=== PATIENT | male | born 1955 | race Caucasian/White ===

== ENCOUNTER 2023-05-25 07:30 | Emergency (ER) | payer MEDICARE, SELFPAY ==
--- NOTE | ~2023-05-25 | XR_ITS ---
XR lumbar spine 2-3V DATE: 05/25/2023 09:44 INDICATION: Back pain TECHNIQUE: AP, lateral, coned lateral lumbosacral views COMPARISON: None FINDINGS: Mild levoscoliosis Diffuse idiopathic skeletal hyperostosis of the thoracolumbar spine. Moderately severe degenerative disc disease at L5-S1 and moderate degenerative disease at the remaini ng lumbar interspaces. No fracture or bone destruction or spondylolisthesis. The lumbar pedicles are intact. The sacroiliac joints appear normal. IMPRESSION: Multilevel degenerative disc disease, moderately severe L5-S1, moderate at the remaining levels Reviewed, dictated and finalized at location B. IMPRESSION: Multilevel degenerative disc disease, moderately severe L5-S1, mode rate at the remaining levels
[2023-05-25 07:34] VITALS: BP 89/76; PULSE 96; RESP 16; TEMP 36.4; O2SAT 98
[2023-05-25 07:57] VITALS: BP 112/65; PULSE 95; RESP 18; O2SAT 100
[2023-05-25] MEDS: KETOROLAC 30 MG/ML VIAL (*BKC) IV PUSH (09:10)
[2023-05-25] MEDS: diazePAM INJ (*CRX) 10 MG/2 ML SYRINGE 3 MG IV PUSH (09:11)
--- NOTE | 2023-05-25 10:58 | ED.BACK ---
HPI - Back Pain/Injury General Chief Complaint: Back Pain/Injury Stated Complaint: Back pain Time Seen by Provider: 05/25/23 07:42 History of Present Illness HPI Narrative: Patient is a 67-year-old male who presents ER with right-sided back pain. Ongoing over the last 5 days. Proceeded by doing increased amount of work outside including lawn care. No fevers or chills or sweats. No known physical trauma no pop. Pain is sharp and radiates down his leg. No saddle anesthesia or difficulty with urination/defecation. Related Data Allergies Allergy/AdvReac Type Severity Reaction Status Date / Time bacitracin Allergy Hives Verified 05/25/23 07:56 [From Neosporin ([id number])] neomycin Allergy Hives Verified 05/25/23 07:56 [From Neosporin ([id number])] polymyxin B Allergy Hives Verified 05/25/23 07:56 [From Neosporin ([id number])] Review of Systems Review of Systems: All systems reviewed & are unremarkable except as noted in HPI and below Constitutional: Constitutional: Denies chills and Denies fever(s) Cardiovascular: Cardiovascular: Denies chest pain, Denies rapid heart rate and Denies radiating jaw, neck or arm pain Gastrointestinal: Gastrointestinal: Denies abdominal pain, Denies nausea and Denies vomiting Musculoskeletal: Musculoskeletal: Reports back pain, Denies arthralgias and Denies joint swelling Neurologic: Denies focal weakness and Denies numbness PMFSH Past Medical History Medical History (Updated 05/25/23 @ 11:03 by Kirt Kendrick MD) Healthy adult male Surgical History Surgical History (Updated 05/25/23 @ 11:03 by Kirt Kendrick MD) No pertinent past surgical history Exam Narrative: GENERAL: Well-appearing, well-nourished, and in no acute distress. HEAD: Normocephalic, atraumatic. CHEST: Clear to auscultation. No respiratory distress. HEART: Regular rate and rhythm. Normal peripheral pulses. ABDOMEN: Soft, nontender, nondistended. Back: No reproducible midline tenderness of the T/L-spine. Mild tenderness to the right paraspinal musculature at the level of L3-L4. Spasm noted. No paraspinal muscle tenderness on the left side. EXTREMITIES: Normal range of motion. No edema. SKIN: Warm, dry, no rash. NEURO: Alert and oriented x3. PSYCH: Normal mood and affect. Course Course Emergency Course: Patient with moderate improvement in pain with Toradol and Valium. Discussed imaging results and treatment of sciatica. Patient verbalized understanding. Discharge home. Vital Signs Vital signs: Vital Signs Temperature 97.6 F 05/25/23 07:34 Pulse Rate 96 05/25/23 07:34 Respiratory Rate 16 05/25/23 07:34 Blood Pressure 89/76 L 05/25/23 07:34 Pulse Oximetry 98 05/25/23 07:34 Oxygen Delivery Room Air 05/25/23 07:34 Temperature 97.6 F 05/25/23 07:34 Pulse Rate 95 05/25/23 07:57 Respiratory Rate 18 05/25/23 07:57 Blood Pressure 112/65 05/25/23 07:57 Pulse Oximetry 100 05/25/23 07:57 Oxygen Delivery Room Air 05/25/23 07:34 MDM - Back Pain/Injury Imaging Data Radiologist's impression: ITS Impressions Lumbar Spine X-Ray 05/25/23 09:57 IMPRESSION: Multilevel degenerative disc disease, moderately severe L5-S1, moderate at the remaining levels Discharge Plan Discharge Clinical Impression: Sciatica Patient Disposition: Home, Self-Care Condition: Stable Instructions: Sciatica (ED) Additional Instructions: Return to the ER if you have increased pain in your back, you develop lower extremity weakness/numbness/paralysis, you have numbness or tingling in your private parts, or you are unable to control your ability to urinate/stool. Prescriptions: New methylprednisolone [Medrol (Richar)] 4 mg tablets,dose pack See Rx Instructions .ROUTE .COMPLEX Qty: 21 0RF Rx Instructions: orally per package directions cyclobenzaprine 10 mg tablet 10 mg PO TID PRN (R
[2023-05-25 11:10] VITALS: BP 137/79; PULSE 89; RESP 20; O2SAT 98
== END 2023-05-25 11:10 | disposition home or self-care (01) ==
PROVIDERS: Emergency Provider Emergency Medicine
DX: M54.41 Lumbago with sciatica, right side (principal)
CPT/HCPCS: 72100; 96374; 96375; 99284; J1885; J3360

== ENCOUNTER 2023-06-01 13:39 | Inpatient (IN) | payer MEDICARE, SELFPAY ==
[2023-06-01] VITALS (9 sets, daily range): BP systolic 105–136; BP diastolic 62–92; PULSE 91–108; RESP 16–18; TEMP 36.2–36.6; O2SAT 92–98; BMI 27.6
--- NOTE | ~2023-06-01 | XR_ITS ---
Right foot Technique: AP and lateral views were obtained. Clinical History: Osteomyelitis of second toe Findings: No acute fracture or dislocation is seen. There is focal erosive change of the distal aspec t of the second distal phalanx, suspicious for osteomyelitis. There is soft tissue swelling of the di stal aspect of the second toe with possible focal soft tissue ulcer. Remaining osseous structures and joint spaces are intact. Impression: Findings consistent with osteomyelitis of the distal aspect of the second distal phalanx with overlyi ng soft tissue swelling and possible ulcer. Reviewed, dictated and finalized at location . Impression: Findings consistent with osteomyelitis of the distal aspect of the second dista l phalanx with overlying soft tissue swelling and possible ulcer.
--- NOTE | ~2023-06-01 | US_ITS ---
EXAMINATION:US venous doppler LE LT INDICATION:Left leg pain TECHNIQUE: Multiple grayscale, color flow and Doppler images of the left lower extremity deep venous systems were obtained and reviewed. COMPARISON:No prior studies for comparison. FINDINGS: The common femoral, superficial femoral and popliteal veins demonstrate normal respiratory variation, augmentation and compressibility. Color flow is also seen within the posterior tibial, pe roneal, and profunda veins. The greater saphenous vein is not visualized. IMPRESSION: 1: No lower extremity deep venous thrombosis. Reviewed, dictated and finalized at location A.
--- NOTE | ~2023-06-01 | XR_ITS ---
XR knee LT min 4V 06/01/2023 18:15 Indication: Left knee pain after fall Procedure: 4 views left knee Comparison: No prior studies for comparison. Findings: There is mild tricompartment osteoarthritis of the left knee. No fracture, subluxation or d islocation. No significant joint effusion. No foreign bodies. Impression: 1: No acute fracture. Reviewed, dictated and finalized at location A. Impression: 1: No acute fracture.
--- NOTE | ~2023-06-01 | MR_ITS ---
EXAMINATION: MR lumbar spine wo/w con DATE: 06/03/2023 17:34 INDICATION: left lower extremity weakness in setting of infxn . TECHNIQUE: Magnetic resonance imaging (MRI) of the lumbar spine was performed without and with 20 mL MultiHance intravenous contrast. Sequences included sagittal T2-weighted FSE, sagittal T2-weighted FS FSE, sagittal T1-weighted FSE, and axial T2-weighted FSE. Postcontrast sequences included sagittal a nd axial T1 FSE FS sequences. COMPARISON: CT lumbar spine 06/01/2023. FINDINGS: The last fully formed and hydrated disc is designated L5-S1. Conus terminates at L1-2. Mult ilevel loss of disc height and hydration. Abnormal T1 hypointensity in the right lateral sacral bone, with corresponding enhancement and adjacent enhancement in the iliacus muscle. Right anterolateral p araspinal enhancement at L1-2, associated with a bridging osteophyte. The following disc levels are s pecifically discussed: T11-T12: The disc does not extend beyond the endplate margin. There is mild facet joint osteoarthriti s. There is no neural foraminal stenosis. There is no central canal stenosis. T12-L1: The disc does not extend beyond the endplate margin. There is mild right and moderate left fa cet joint osteoarthritis. There is no neural foraminal stenosis. There is no central canal stenosis. L1-L2: Large bridging anterior/right lateral osteophyte with abnormal T1 and T2 signal extending into the bone marrow of L1 with accompanying enhancement. The disc does not extend beyond the endplate ma rgin. There is moderate bilateral facet joint osteoarthritis. There is no neural foraminal stenosis. There is no central canal stenosis. L2-L3: Anterolateral vertebral body marrow signal abnormality associated with the bridging osteophyte described above. Moderate diffuse bulge. There is moderate bilateral facet joint osteoarthritis. The re is mild bilateral inferior neural foraminal stenosis. There is no central canal stenosis. L3-L4: Moderate diffuse bulge There is severe left and moderate right facet joint arthritis. There is no neural foraminal stenosis. There is no central canal stenosis. 4 x 8 mm fluid pocket with surroun ding enhancement adjacent to the left facet. Mild thecal enhancement at this level, no epidural absce ss. L4-L5: Moderate diffuse bulge with a 6 mm left subarticular protrusion that severely narrows the left lateral recess. There is severe left and moderate right facet joint arthritis. There is mild right i nferior and severe left neural foraminal stenosis. There is moderate central canal stenosis. Multiple fluid pockets ranging in size between 6 and 9 mm adjacent to the left facet, with surrounding enhanc ement. Mild marrow enhancement in the left pars at L4, likely reactive change. Mild thecal enhancemen t at this level, no epidural abscess. L5-S1: Mild diffuse bulge with a left subarticular and foraminal marginal osteophyte and disc protrus ion contribute to narrowing of the left lateral recess. There is moderate bilateral facet joint osteo arthritis. There is no right and moderate left neural foraminal stenosis. There is no central canal s tenosis. IMPRESSION: Marrow signal abnormality and enhancement that could be consistent with infection involving the anter olateral aspect of L1 and L2 and the associated bridging osteophyte, as well as the adjacent paraspin al soft tissues. No signal abnormality in the disc detected at this time. Severe left facet arthropathy with adjacent peripherally enhancing fluid collections at L3-4 and L4-5 , may represent septic facet arthropathy in the appropriate clinical context. Focal enhancement in the right peripheral sacrum adjacent to the SI joint, with abnormal signal in th e iliacus muscle, may represent an additional site of infection. No epidural abscess detected. Multilevel degenerative changes are described in detail above.
--- NOTE | ~2023-06-01 | MR_ITS ---
MRI of the pelvis CLINICAL HISTORY: Osteomyelitis TECHNIQUE: Coronal T1-weighted, STIR, and T2 fat-sat images, axial T1-weighted, T2 fat-sat, and T1 fa t-sat images, and sagittal T1-weighted and T2 fat-sat images were performed. Following intravenous ad ministration of 20 cc MultiHance gadolinium, T1-weighted fat-sat imaging was performed in the axial, coronal, and sagittal planes. FINDINGS: There is no fracture, avascular necrosis, transient osteoporosis of either hip. Bone marrow signals the proximal femora and visualized pelvic bones are unremarkable. No evidence for osteitis. No bone marrow edema seen. There is minimal degenerative change of bilateral hip joints. Bilateral SI joints appear unremarkable. No joint effusion. There is mild amorphous edematous change in the right gluteus tino muscle. There is also edematous change at the very proximal quadriceps muscle bellies bilaterally. Remaining musculature about the p roberto demonstrates normal signal intensity. There is also mild edema in the posterior paravertebral m usculature which is probably reactive related to severe facet arthropathy on the left side at L4-L5. Visualized tendons appear intact. No soft tissue mass or fluid collection clearly evident. No evidenc e for bursitis. No suspicious postcontrast enhancement identified. IMPRESSION: No evidence for osteitis. Minimal degenerative change of both hip joints. Areas of muscle edema at the right gluteal tino muscle and the proximal bilateral quadriceps muscl e bellies, nonspecific. Reviewed, dictated and finalized at [facility]. IMPRESSION: No evidence for osteitis. Minimal degenerative change of both hip joints. Areas of muscle edema at the right gluteal tino muscle and the proximal bila teral quadriceps muscle bellies, nonspecific.
--- NOTE | ~2023-06-01 | CT_ITS ---
EXAMINATION: CT lumbar spine wo con DATE: 06/01/2023 18:08 INDICATION: Low back pain TECHNIQUE: Computed tomography (CT) of the lumbar spine was performed without intravenous contrast. T he dose-length product was 1394.39 mGy-cm. Automated exposure control and iterative reconstruction te chnique were employed. COMPARISON: None FINDINGS: There is disc narrowing at L5-S1. Vertebral body heights are maintained. There is levoscoli osis. There is facet degenerative change at L3-4 through L5-S1. No evidence for spondylolisthesis. Sa bravo is unremarkable. Transverse processes are normal. There is partial ankylosis of the left sacroil iac joint. No acute fracture or traumatic malalignment. Surrounding soft tissues are unremarkable. IMPRESSION: 1. No acute abnormality of the lumbar spine. 2: Moderate lumbar spondylosis with levoscoliosis. Reviewed, dictated and finalized at location A.
--- NOTE | ~2023-06-01 | CT_ITS ---
CT of the Abdomen and Pelvis: Indication: Pyelonephritis Technique: 2.5 mm axial scans were obtained through the abdomen and pelvis prior to and following in travenous administration of 130 cc of Omnipaque 350. Dose reduction technique was used on this scan b y utilizing automated exposure control and iterative reconstruction technique. The dose-length produc t (DLP) was 2667.64 mGy-cm. Findings: Scans through the lung bases demonstrate minimal left pleural effusion. The liver, pancreas, gallbladder, adrenals and kidneys are within normal limits. Spleen is enlarged m easuring 16.1 cm in length. There are large geographic areas of decreased attenuation/enhancement in the upper spleen, compatible with large splenic infarct. There are atherosclerotic calcifications of the aorta. No lymphadenopathy. No bowel obstruction or bowel wall thickening. There is no evidence to suggest acute appendicitis. Sm all fat-containing umbilical hernia noted. Images through the pelvis were performed. Urinary bladder unremarkable. Prostate gland and seminal ve sicles are unremarkable. No ascites. Impression: Findings consistent with large splenic infarct, as detailed above. Underlying splenomegaly. No evidence for pyelonephritis. Minimal left pleural effusion. Reviewed, dictated and finalized at location M. Impression: Findings consistent with large splenic infarct, as detailed above. Underlying s plenomegaly. No evidence for pyelonephritis. Minimal left pleural effusion.
--- NOTE | ~2023-06-01 | XR_ITS ---
EXAMINATION: XR chest 1V 06/01/2023 19:10 INDICATION: Chest pain after fall PROCEDURE: AP view of the chest COMPARISON: No prior studies for comparison. FINDINGS: The lungs are clear. The cardiomediastinal silhouette is within normal limits. There are no pleural effusions. There is no pneumothorax suspected. There are healed left rib fractures. IMPRESSION: 1: NO ACUTE CARDIOPULMONARY DISEASE. Reviewed, dictated and finalized at location A.
--- NOTE | ~2023-06-01 | MR_ITS ---
MRI of the left thigh and left calf CLINICAL HISTORY: Osteoarthritis TECHNIQUE: Coronal T1-weighted and STIR images, sagittal T1-weighted and STIR images, and axial T1-we ighted, T1 fat-sat, and STIR images were acquired. Following intravenous administration of 20 cc Mult iHance gadolinium, T1-weighted fat-sat imaging was performed in the axial and coronal planes. FINDINGS: There is a small probable enchondroma at the distal femoral metadiaphyseal region. Otherwis e, no bone marrow signal abnormalities are identified. No evidence for osteitis. No marrow edema or f racture evident. There is focal edema at the very proximal left quadriceps muscle bellies. There is extensive aortic a nd edematous signal throughout most of the musculature in the left calf, with relative sparing of the gastrocnemius muscles. Visualized tendons are intact. There is extensive subcutaneous soft tissue ed mohsen, especially the lateral thigh and diffusely in the mid to distal calf extending to the foot/ankle . There are small areas of irregular enhancement in the tibialis anterior and tibialis posterior muscle bellies, which could reflect small abscesses or phlegmonous areas. IMPRESSION: No evidence for osteomyelitis. Probable small areas of phlegmonous change or early abscess formation in the tibialis anterior anteri or and tibial posterior muscle bellies. Extensive amorphous edematous change of the vasculature in the calf, which could reflect reactive or infectious myositis. Subcutaneous soft tissue edema, especially at the mid to distal calf and lateral at the thigh, nonspe cific. Correlate for cellulitis versus bland edema. Small enchondroma of the distal femur. Reviewed, dictated and finalized at location . IMPRESSION: No evidence for osteomyelitis. Probable small areas of phlegmonous change or early abscess formation in the ti bialis anterior anterior and tibial posterior muscle bellies. Extensive amorphous edematous change of the vasculature in the calf, which coul d reflect reactive or infectious myositis. Subcutaneous soft tissue edema, especially at the mid to distal calf and latera l at the thigh, nonspecific. Correlate for cellulitis versus bland edema. Small enchondroma of the distal femur.
--- NOTE | ~2023-06-01 | CT_ITS ---
EXAMINATION: CT brain wo con DATE: 06/01/2023 18:07 INDICATION: Head injury. TECHNIQUE: Computed tomography (CT) of the head was performed without intravenous contrast. The dose- length product was 605.33 mGy-cm. Automated exposure control and iterative reconstruction technique w ere employed. COMPARISON: None FINDINGS: No acute intracranial hemorrhage, infarction, mass or mass effect. No ventriculomegaly or m idline shift. Basilar cisterns are patent. Mild generalized atrophy. There are scattered mild periven tricular and subcortical white matter changes, most likely related to small vessel ischemic disease ( microangiopathy). Paranasal sinuses and mastoids are pneumatized. No depressed skull fractures. IMPRESSION: 1. No acute intracranial abnormality. Reviewed, dictated and finalized at location A.
--- NOTE | 2023-06-01 17:49 | ED.BACK ---
HPI - Back Pain/Injury General Chief Complaint: Back Pain/Injury <TOSHA Castro Last Filed: 06/01/23 23:10> Stated Complaint: back pain <TOSHA Castro Last Filed: 06/01/23 23:10> Time Seen by Provider: 06/01/23 17:07 <TOSHA Castro Last Filed: 06/01/23 23:10> Source: patient <TOSHA Castro Last Filed: 06/01/23 23:10> Mode of arrival: EMS <TOSHA Castro Last Filed: 06/01/23 23:10> Limitations: no limitations <TOSHA Castro Last Filed: 06/01/23 23:10> History of Present Illness HPI Narrative: This is a 67-year-old male that presents to the emergency department for low back pain. Reports he strained his back a couple of weeks ago. He was evaluated in the ED after this and discharged with steroid pack and muscle relaxer. Reports his pain has not really improved. He has had several falls due to his legs giving out on him. He saw his primary doctor yesterday who prescribed him some pain medication and referred him to physical therapy. Today he had a fall and was unable to get up. His daughter called an ambulance for him. He does believe he hit his head. He did not lose consciousness. Denies fever, saddle anesthesia, bowel/bladder incontinence. <TOSHA Castro Last Filed: 06/01/23 23:10> Related Data Allergies/Adverse Reactions: Allergies Allergy/AdvReac Type Severity Reaction Status Date / Time bacitracin Allergy Hives Verified 05/31/23 15:04 [From Neosporin ([id number])] neomycin Allergy Hives Verified 05/31/23 15:04 [From Neosporin ([id number])] polymyxin B Allergy Hives Verified 05/31/23 15:04 [From Neosporin ([id number])] <TOSHA Castro Last Filed: 06/01/23 23:10> Review of Systems Review of Systems: CONSTITUTIONAL: Denies fever EYES: Denies visual changes GASTROINTESTINAL: Denies vomiting SKIN: Denies rash MUSCULOSKELETAL: Reports back pain, joint pain, and myalgia. NEUROLOGIC: Denies numbness, or weakness. <Vicki Nelson PA-C - Last Filed: 06/01/23 23:10> All systems reviewed & are unremarkable except as noted in HPI and below <Vicki Nelson PA-C - Last Filed: 06/01/23 23:10> [facility] Past Medical History Medical History: Medical History (Updated 06/02/23 @ 00:12 by Mirela Lopez MD) Healthy adult male <Vicki Nelson PA-C - Last Filed: 06/01/23 23:10> Surgical History Surgical History: Surgical History No pertinent past surgical history <Vicki Nelson PA-C - Last Filed: 06/01/23 23:10> Family History Family History: Family History (Updated 06/01/23 @ 23:23 by Awa Greer RN) Sibling Heart murmur Father <Vicki Nelson PA-C - Last Filed: 06/01/23 23:10> Social History Social History: Social History Years smoked: 50 Smoking status: Former smoker Tobacco type: cigarettes Smoking end date: 05/09/23 Additional smoking assessment comments: 2-4 packs per week Alcohol intake: former Drinks per week: 5 Alcohol use details: daily Substance use: former Substance use type: marijuana Last use: 40 years ago Lack of Transportation: No Lack of Food: Never True Current Housing: I Have Housing Concerned About Future Housing: No Difficulty Paying Gas/Electric Bills: No Difficulty Paying for Meds: No Currently Unemployed: No Education: Trade/Vocational Certificate Difficulty w/ Childcare or Family Care: No Living arrangements: alone Occupation/Education: retired Gender identity (if verbalized by the patient): Male Spiritual care concerns: No Agree to blood products: Yes <TOSHA Castro Last Filed: 06/01/23 23:10> Exam Narrative: GENERAL: Disheveled, well-nourished, and in no acute dis
--- NOTE | 2023-06-01 17:54 | PC.NURSE ---
@3253 Pt was taken to radiology
[2023-06-01 17:58] LABS: Hematocrit 44.2 % (42.0-52.0); Hemoglobin 14.7 g/dL (14.0-18.0); Mean Corpuscular HGB Conc 33.3 g/dl (32-36); Mean Corpuscular Hemoglobin 31.5 pg (26-34); Mean Corpuscular Volume 94.8 fl (80-100); Platelet Count Result 214 k/mm3 (150-375); Red Blood Count 4.66 M/mm3 (4.6-6.20); Red Cell Distribution Width 13.3 % (11.5-14.5); White Blood Count 23.9 K/mm3 (4.5-10.0)
[2023-06-01 18:13] LABS: Alanine Aminotransferase 46 U/L (6-50); Albumin Level 3.8 g/dL (3.5-5.1); Alkaline Phosphatase 122 U/L (38-126); Anion Gap 12 mmol/L (8-16); Aspartate Amino Transferase 46 U/L (17-59); Bilirubin,Total 2.2 mg/dL (0.2-1.3); Blood Urea Nitrogen 25 mg/dL (9-20); Calcium 9.6 mg/dL (8.4-10.2); Carbon Dioxide 30 mmol/L (22-30); Chloride 88 mmol/L (98-107); Creatine Kinase 54 U/L (55-170); Estimated CRCL calculation 68 ml/min; Estimated Glomerular Filt Rate > 60; Glucose 190 mg/dL (65-110); Sodium 130 mmol/L (137-145)
--- NOTE | 2023-06-01 18:13 | PC.NURSE ---
@1813 Pt returned from radiology.
[2023-06-01] MEDS: ACETAMINOPHEN 500 MG TABLET 1000 MG PO (18:19)
[2023-06-01] MEDS: KETOROLAC 30 MG/ML VIAL (*BKC) IM (18:20)
[2023-06-01 18:44] LABS: Band Neutrophils Percent 3 % (0-6); Lymphocytes Absolute Manual 0.23 K/mm3 (1.1-4.5); Monocytes Absolute Manual 0.71 K/mm3 (0.1-0.90); Monocytes Percent Manual 3 % (3-9); Neutrophils Absolute Manual 22.94 K/mm3 (1.3-6.7); Neutrophils Percent Manual 93 % (46-73); Platelet Estimate Adequate (Adequate); Schistocytes None Seen (NORMAL); Total Cells Counted 100
[2023-06-01] MEDS: SODIUM CHLORIDE 0.9% IV 500 ML 999 ML IV CONT (19:41)
--- NOTE | 2023-06-01 20:53 | PC.NURSE ---
patient refuses straight catheterization for urine sample.
[2023-06-01] MEDS: SODIUM CHLORIDE 0.9% IV 1,000 ML 999 ML IV CONT (20:58)
--- NOTE | 2023-06-01 21:13 | PM.IMHP ---
H&P: HPI History of Present Illness Date/Time: 06/01/23 21:13 Chief Complaint: Fall Narrative: This is a 67-year-old male with past medical history significant for alcohol dependence, tobacco dependence, patient presents to the emergency room due to generalized weakness, patient had a fall and was unable to get back up on his on tried a several times but with no success eventually daughter called EMS who came to the house and brought him to the emergency room for evaluation patient has been complaining of lower back pain, left lower extremity pain and weakness, knee pain of the left as well has had some diarrhea, denies any fevers rigors or chills, no nausea no vomiting, no abdominal pain, no cough, no sputum production, no loss of consciousness. XR knee LT min 4V 06/01/2023 18:15 Indication: Left knee pain after fall Procedure: 4 views left knee Comparison: No prior studies for comparison. Findings: There is mild tricompartment osteoarthritis of the left knee. No fracture, subluxation or dislocation. No significant joint effusion. No foreign bodies. Impression: 1: No acute fracture. EXAMINATION: CT brain wo con DATE: 06/01/2023 18:07 INDICATION: Head injury. TECHNIQUE: Computed tomography (CT) of the head was performed without intravenous contrast. The dose-length product was 605.33 mGy-cm. Automated exposure control and iterative reconstruction technique were employed. COMPARISON: None FINDINGS: No acute intracranial hemorrhage, infarction, mass or mass effect. No ventriculomegaly or midline shift. Basilar cisterns are patent. Mild generalized atrophy. There are scattered mild periventricular and subcortical white matter changes, most likely related to small vessel ischemic disease (microangiopathy). Paranasal sinuses and mastoids are pneumatized. No depressed skull fractures. IMPRESSION: 1. No acute intracranial abnormality. EXAMINATION: CT lumbar spine wo con DATE: 06/01/2023 18:08 INDICATION: Low back pain TECHNIQUE: Computed tomography (CT) of the lumbar spine was performed without intravenous contrast. The dose-length product was 1394.39 mGy-cm. Automated exposure control and iterative reconstruction technique were employed. COMPARISON: None FINDINGS: There is disc narrowing at L5-S1. Vertebral body heights are maintained. There is levoscoliosis. There is facet degenerative change at L3-4 through L5-S1. No evidence for spondylolisthesis. Sacrum is unremarkable. Transverse processes are normal. There is partial ankylosis of the left sacroiliac joint. No acute fracture or traumatic malalignment. Surrounding soft tissues are unremarkable. IMPRESSION: 1. No acute abnormality of the lumbar spine. 2:? Moderate lumbar spondylosis with levoscoliosis. EXAMINATION: XR chest 1V 06/01/2023 19:10 INDICATION: Chest pain after fall PROCEDURE:? AP view of the chest COMPARISON: No prior studies for comparison. FINDINGS: The lungs are clear.? The cardiomediastinal silhouette is within normal limits.? There are no pleural effusions.? There is no pneumothorax suspected.? There are healed left rib fractures. IMPRESSION: 1:? NO ACUTE CARDIOPULMONARY DISEASE. EXAMINATION:US venous doppler LE LT INDICATION:Left leg pain TECHNIQUE: Multiple grayscale, color flow and Doppler images of the left lower extremity deep venous systems were obtained and reviewed. COMPARISON:No prior studies for comparison. FINDINGS: The common femoral, superficial femoral and popliteal veins demonstrate normal respiratory variation, augmentation and compressibility.? Color flow is also seen within the posterior tibial, peroneal, and profunda veins. The greater saphenous vein is not visualized. IMPRESSION: 1:? No lower extremity deep venous thrombosis. Review of Systems Review of Systems: Fall, generalized weakness, left knee pain, diarrhea Constitutional: Constitutional: Denies chills, Denies fever(s), Reports priyanka
--- NOTE | 2023-06-01 22:42 | ADMGEN ---
This patient, Charles Martin, was admitted to Medical Room 241-01. Patient/family oriented to hospital policies and general routines including ID bracelet, bed and alarms, visiting hours, pain management, procedures, bathroom and other care routines, personal items, smoking policy, room service/diet, and visiting hours. Information on how to activate the Rapid Response Team has been discussed. Patient/Family are encouraged to report perceived risks to care and to ask questions if they do not understand what they are told or what they should do.
[2023-06-01 23:26] LABS: Glucose Point of Care 176 mg/dl (65-105)
--- NOTE | 2023-06-01 23:52 | PC.NURSE ---
Per pt, he does not have a living will nor POA in writing, but would like for his daughter Sofía Chapman to make decisions for him. Pt also stated that if his heart stops beating he would like to be let go.
[2023-06-02] MEDS: HYDROmorphone HCL INJ (*CRX) 1 MG/ML SYR IV PUSH ×5 (00:26→21:05)
[2023-06-02 01:56] LABS: Bacteria Urine None Seen /hpf; Need Manual Microscopic Reviewed; RBC Urine 0-2 /hpf (0-2); Squamous Epithelial Cell Urine Moderate /hpf (Few); WBC Urine 0-5 /hpf
[2023-06-02 01:58] LABS: Appearance Urine Turbid (Clear); Color Urine Amber (Yellow)
[2023-06-02 01:59] LABS: Bilirubin Urine 2+ (Negative); Blood Urine Negative (Negative); Glucose Urine UA Trace mg/dL (Negative); Ketones Urine Negative (Negative); Leukocyte Esterase Ur 1+ LEU/UL (Negative); Nitrate Urine Positive (Negative); Protein Urine 1+ mg/dL (Negative); Specific Grav Ur 1.023 (1.001-1.035)
[2023-06-02 02:05] LABS: Add Urine Microscopic? YES
--- NOTE | 2023-06-02 04:08 | PC.NURSE ---
Per order by Dr. Lopez, bladder scanned pt. Only 179 cc in bladder @0340. Noted some urine in bed sheet and asked pt if he has issues with incontinence, pt stated has only just started since the fall. Asked pt if he would like a [place] or depend. Pt said he would like to try depend first.
[2023-06-02] MEDS: DEXTROSE 5%/0.45% SOD CHL 1,000 ML 75 ML IV CONT (04:19)
[2023-06-02] MEDS: MAG HYDROX/AL HYDROX/SIMETH 30 ML UDC PO ×2 (05:36→12:26)
[2023-06-02 05:43] LABS: Basophils Percent Auto 0.2 % (0.2-1.2); Eosinophils Percent Auto 0.1 % (0-4.4); Hemoglobin 12.7 g/dL (14.0-18.0); Immature Granulocyte Absolute 0.22 K/mm3 (0.00-0.031); Immature Granulocyte Percent A 1.2 % (0-0.5); Lymphocytes Absolute Auto 0.52 K/mm3 (0.9-3.2); Lymphocytes Percent Auto 2.8 % (18.3-44.2); Mean Corpuscular HGB Conc 32.6 g/dl (32-36); Mean Corpuscular Hemoglobin 30.9 pg (26-34); Mean Corpuscular Volume 94.9 fl (80-100); Mean Platelet Volume 10.8 fl (7.4-10.4); Monocytes Absolute Auto 1.1 K/mm3 (0.1-0.6); Monocytes Percent Auto 5.7 % (2.6-8.5); Platelet Count Result 205 k/mm3 (150-375); Red Blood Count 4.11 M/mm3 (4.6-6.20); Red Cell Distribution Width 13.2 % (11.5-14.5); White Blood Count 18.9 K/mm3 (4.5-10.0)
[2023-06-02 05:51] VITALS: BP 141/77; PULSE 100; RESP 16; TEMP 36.8; O2SAT 96
[2023-06-02 05:58] LABS: Anion Gap 10 mmol/L (8-16); Blood Urea Nitrogen 28 mg/dL (9-20); Calcium 8.7 mg/dL (8.4-10.2); Carbon Dioxide 29 mmol/L (22-30); Chloride 92 mmol/L (98-107); Estimated CRCL calculation 68 ml/min; Estimated Glomerular Filt Rate > 60; Glucose 187 mg/dL (65-110); Potassium 4.5 mmol/L (3.4-5.0); Sodium 131 mmol/L (137-145)
--- NOTE | 2023-06-02 07:09 | PM.IMPN ---
Progress Note: A&P Assessment and Plan (1) Lumbar radiculopathy: Code(s): M54.16 - Radiculopathy, lumbar region Status: Acute Assessment and Plan: Admit to regular medical floor Neurosurgery consult placed Patient has severe, sharp, burning pain with minimal manipulation of the lower extremities. Recently was seen in the ED here last week on 05/25 for similar complaints. He was d/c'd with Flexeril and script for steroid dose cristine. He was then seen in his PCP office on Tuesday for follow up and received another prescription for steroids. He then presented back to our ED on 05/31 for a fall related to his pain and weakness. Will order lumbar spine MRI. Pain control with acetaminophen, tramadol, Dilaudid, and Flexeril Pain may also be related to neuropathy-can start gabapentin (2) Generalized weakness: Code(s): R53.1 - Weakness Status: Acute Assessment and Plan: BLE weakness and shooting pain causing recurrent falls. (3) Recurrent falls: Code(s): R29.6 - Repeated falls Status: Acute Assessment and Plan: Fall precautions PT/OT (4) Diabetes mellitus, new onset: Code(s): E11.9 - Type 2 diabetes mellitus without complications Status: Acute Assessment and Plan: Hemoglobin A1c 8 Insulin sliding scale as needed accu checks ac/hs software educator consult for new onset DM diagnosis. Will need to add metformin at discharge. (5) Degenerative disc disease, lumbar: Code(s): M51.36 - Other intervertebral disc degeneration, lumbar region Status: Acute Assessment and Plan: Pain control with tylenol, tramadol, dilaudid and flexeril prn (6) Acute low back pain with right-sided sciatica: Qualifiers: Back pain laterality: bilateral Qualified Code(s): M54.41 - Lumbago with sciatica, right side Code(s): M54.41 - Lumbago with sciatica, right side Status: Acute Assessment and Plan: Pain management multimodal with gabapentin, Flexeril, tramadol, acetaminophen, and Dilaudid for severe pain. (7) Tobacco dependence: Code(s): F17.200 - Nicotine dependence, unspecified, uncomplicated Status: Acute Assessment and Plan: Patient stated that he quit Nicotine patch as needed (8) Alcohol dependence: Code(s): F10.20 - Alcohol dependence, uncomplicated Status: Acute Assessment and Plan: Patient states that he quit 4 to 6 weeks ago Monitor for ETOH withdrawal (9) UTI (urinary tract infection): Code(s): N39.0 - Urinary tract infection, site not specified Status: Acute Assessment and Plan: Leukocytosis of 23 on admission initially thought to be contributed to recent steroid dose pack. Down trending to 18.9 with IV hydration. -U/A with + leukocytes and + nitrates but no WBC and patient is asymptomatic -+ lower back pain -recurrent falls -NS at 75 ml per hour -urine culture ordered -CT abd/pelvis is negative for pyelonephritis but did show large splenic infarct. Can follow clinically but does not appear to be concerning for abscess. -patient said he has had diarrhea this last week but no bm since admission. will write for c-diff should he have loose stools. -Blood cultures with GPC in clusters in both aerobic bottles. Will repeat cultures now and start on IV vancomycin. Concerns for contaminate given no obvious source of infection. Subjective Date/time seen: 06/02/23 07:09 Interval history: HPI from chart This is a 67-year-old male with past medical history significant for alcohol dependence, tobacco dependence, patient presents to the emergency room due to generalized weakness, patient had a fall and was unable to get back up on his on tried a several times but with no success eventually daughter called EMS who came to the house and brought him to the emergency room for evaluation patient has been complaining of lower back pain, left lower extremity pain a
[2023-06-02] MEDS: SODIUM CHLORIDE 0.9% IV 1,000 ML 75 ML IV CONT (08:19)
[2023-06-02] MEDS: CYCLOBENZAPRINE HCL 10 MG TABLET PO (08:20)
[2023-06-02] MEDS: ENOXAPARIN 40 MG/0.4 ML SYRINGE SUB-Q (08:20)
--- NOTE | 2023-06-02 08:46 | PCPTNOTE ---
Pt off the unit for testing. Will follow.
[2023-06-02 08:51] LABS: Glucose Point of Care 234 mg/dl (65-105)
[2023-06-02 09:39] LABS: Glucose Point of Care 221 mg/dl (65-105)
[2023-06-02] MEDS: SILVERGEL (ELTA) 45 ML 1 APPLIC TOPICAL (10:02)
[2023-06-02] MEDS: INSULIN ASPART (*BKC) 100 UNITS/ML SUB-Q ×2 (10:02→12:25)
[2023-06-02 11:36] VITALS: BMI 27.6
--- NOTE | 2023-06-02 11:40 | PCPTNOTE ---
Attempted PT evaluation, pt refused due to pain. RN aware. Will follow.
[2023-06-02] MEDS: PANTOPRAZOLE 40 MG TABLET PO (11:50)
[2023-06-02 11:56] LABS: Glucose Point of Care 209 mg/dl (65-105)
[2023-06-02 14:00] VITALS: BP 110/60; PULSE 57; RESP 16; TEMP 36.4; O2SAT 92
--- NOTE | 2023-06-02 14:07 | PCOTNOTE ---
Pt. refusing therapy services at this time. Nursing aware. Following.
[2023-06-02] MEDS: VANCOMYCIN 1,250 MG/NS 250 ML 1,250 MG/250 ML BAG 166.67 MG IVPB ×2 (15:51→17:43)
[2023-06-02 17:10] LABS: Glucose Point of Care 190 mg/dl (65-105)
[2023-06-02] MEDS: GABAPENTIN 300 MG CAPSULE PO (17:42)
[2023-06-02 21:16] LABS: Glucose Point of Care 161 mg/dl (65-105)
[2023-06-02 21:34] VITALS: BP 120/67; PULSE 55; RESP 18; TEMP 36.8; O2SAT 89
[2023-06-03] MEDS: SODIUM CHLORIDE 0.9% IV 1,000 ML 75 ML IV CONT (02:12)
[2023-06-03 06:00] VITALS: BP 130/94; PULSE 110; RESP 19; TEMP 36.9; O2SAT 93
[2023-06-03] MEDS: HYDROmorphone HCL INJ (*CRX) 1 MG/ML SYR IV PUSH ×2 (06:10→19:37)
[2023-06-03 06:26] LABS: Basophils Absolute Auto 0.1 K/mm3 (0.0-0.1); Basophils Percent Auto 0.3 % (0.2-1.2); Eosinophils Percent Auto 0.2 % (0-4.4); Hematocrit 33.6 % (42.0-52.0); Hemoglobin 11.2 g/dL (14.0-18.0); Lymphocytes Percent Auto 3.1 % (18.3-44.2); Mean Corpuscular HGB Conc 33.3 g/dl (32-36); Mean Corpuscular Hemoglobin 31.8 pg (26-34); Mean Corpuscular Volume 95.5 fl (80-100); Mean Platelet Volume 10.6 fl (7.4-10.4); Monocytes Absolute Auto 1.2 K/mm3 (0.1-0.6); Monocytes Percent Auto 6.2 % (2.6-8.5); Neutrophils Absolute Auto 17.5 K/mm3 (1.3-6.7); Neutrophils Percent Auto 89.2 % (45.5-73.1); Platelet Count Result 219 k/mm3 (150-375); Red Blood Count 3.52 M/mm3 (4.6-6.20); Red Cell Distribution Width 13.6 % (11.5-14.5); White Blood Count 19.6 K/mm3 (4.5-10.0)
[2023-06-03 06:50] LABS: Alanine Aminotransferase 48 U/L (6-50); Albumin Level 2.8 g/dL (3.5-5.1); Alkaline Phosphatase 95 U/L (38-126); Anion Gap 7 mmol/L (8-16); Aspartate Amino Transferase 52 U/L (17-59); Blood Urea Nitrogen 17 mg/dL (9-20); Calcium 8.2 mg/dL (8.4-10.2); Carbon Dioxide 24 mmol/L (22-30); Chloride 96 mmol/L (98-107); Estimated CRCL calculation 104 ml/min; Estimated Glomerular Filt Rate > 60; Glucose 153 mg/dL (65-110); Magnesium 1.8 mg/dL (1.6-2.3); Phosphorus 3.5 mg/dL (2.5-4.5); Potassium 3.9 mmol/L (3.4-5.0); Sodium 127 mmol/L (137-145)
--- NOTE | 2023-06-03 07:29 | PM.IMPN ---
Progress Note: A&P Assessment and Plan (1) Lumbar radiculopathy: Code(s): M54.16 - Radiculopathy, lumbar region Status: Acute Assessment and Plan: -Admit to regular medical floor -Neurosurgery consult placed -Recommending MRI of lumbar spine w/wo contrast ANDREWS. Ordered by NS. -Patient has severe, sharp, burning pain with minimal manipulation of the lower extremities. -Recently was seen in the ED here last week on 05/25 for similar complaints. He was d/c'd with Flexeril and script for steroid dose cristine. He was then seen in his PCP office on Tuesday for follow up and received another prescription for steroids. He then presented back to our ED on 05/31 for a fall related to his pain and weakness. -Pain control with acetaminophen, tramadol, Dilaudid, and Flexeril -Pain may also be related to neuropathy-can start gabapentin (2) Generalized weakness: Code(s): R53.1 - Weakness Status: Acute Assessment and Plan: BLE weakness and shooting pain causing recurrent falls. (3) Recurrent falls: Code(s): R29.6 - Repeated falls Status: Acute Assessment and Plan: Fall precautions PT/OT (4) Diabetes mellitus, new onset: Code(s): E11.9 - Type 2 diabetes mellitus without complications Status: Acute Assessment and Plan: -Hemoglobin A1c 8 -Insulin sliding scale as needed -accu checks ac/hs -healthcare educator consult for new onset DM diagnosis. Will need to add metformin at discharge. -He also has a non-healing ulcer to his right second toe after trying to cut off a callus months ago. Will obtain XR of foot to rule out any underlying process considering persistent leukocytosis. -XR of toe has concerns for osteomyelitis. -consulted general surgery for source control -Blood cultures growing staph simulans. continue IV vanco and await sensitivities. -repeat blood cultures on Tuesday to document bacterial clearance. (5) Degenerative disc disease, lumbar: Code(s): M51.36 - Other intervertebral disc degeneration, lumbar region Status: Acute Assessment and Plan: Pain control with tylenol, tramadol, dilaudid and flexeril prn (6) Acute low back pain with right-sided sciatica: Qualifiers: Back pain laterality: bilateral Qualified Code(s): M54.41 - Lumbago with sciatica, right side Code(s): M54.41 - Lumbago with sciatica, right side Status: Acute Assessment and Plan: Pain management multimodal with gabapentin, Flexeril, tramadol, acetaminophen, and Dilaudid for severe pain. (7) Tobacco dependence: Code(s): F17.200 - Nicotine dependence, unspecified, uncomplicated Status: Acute Assessment and Plan: Patient stated that he quit Nicotine patch as needed (8) Alcohol dependence: Code(s): F10.20 - Alcohol dependence, uncomplicated Status: Acute Assessment and Plan: Patient states that he quit 4 to 6 weeks ago Monitor for ETOH withdrawal (9) UTI (urinary tract infection): Code(s): N39.0 - Urinary tract infection, site not specified Status: Acute Assessment and Plan: Leukocytosis of 23 on admission initially thought to be contributed to recent steroid dose pack. Trend 23-->18-->19 today -U/A with + leukocytes and + nitrates but no WBC and patient is asymptomatic. Will still continue Rocephin until culture results. -+ lower back pain -recurrent falls -NS at 75 ml per hour -urine culture ordered -CT abd/pelvis is negative for pyelonephritis but did show large splenic infarct. Can follow clinically but does not appear to be concerning for abscess. -patient said he has had diarrhea this last week but no bm since admission. will write for c-diff should he have loose stools. Subjective Date/time seen: 06/03/23 07:29 Interval history: HPI from chart This is a 67-year-old male with past medical history significant for alcohol dependence, tobacco dependence
[2023-06-03 07:32] LABS: CRP 38.1 mg/dL (<1.0)
--- NOTE | 2023-06-03 08:15 | PCOTNOTE ---
Neuro consult placed for patient, will attempt to to follow up later for OT eval.
--- NOTE | 2023-06-03 08:17 | PCPTNOTE ---
PT orders received, neurosurgery consult placed. Will hold PT eval at this time until patient is medically appropriate.
[2023-06-03 08:31] LABS: Glucose Point of Care 167 mg/dl (65-105)
[2023-06-03] MEDS: ENOXAPARIN 40 MG/0.4 ML SYRINGE SUB-Q (08:48)
[2023-06-03] MEDS: PANTOPRAZOLE 40 MG TABLET PO (08:49)
[2023-06-03] MEDS: GABAPENTIN 300 MG CAPSULE PO ×3 (08:49→17:57)
[2023-06-03] MEDS: traMADol HCL (*CRX) 50 MG TABLET PO ×2 (08:49→20:50)
[2023-06-03] MEDS: SILVERGEL (ELTA) 45 ML 1 APPLIC TOPICAL (08:53)
[2023-06-03 12:03] LABS: Glucose Point of Care 241 mg/dl (65-105)
[2023-06-03] MEDS: INSULIN ASPART (*BKC) 100 UNITS/ML SUB-Q (12:17)
[2023-06-03 12:28] VITALS: BMI 27.6
[2023-06-03 14:00] VITALS: BP 117/78; PULSE 108; RESP 18; TEMP 36.4; O2SAT 100
--- NOTE | 2023-06-03 14:58 | WPDNEUROSGCN ---
Assessment and Plan Assessment and plan (1) Acute low back pain with right-sided sciatica: Qualifiers: Back pain laterality: bilateral Qualified Code(s): M54.41 - Lumbago with sciatica, right side Code(s): M54.41 - Lumbago with sciatica, right side Status: Acute Plan The patient is a 67-year-old male who presents with severe low back and left lower extremity pain as well as both subjective and objective Proctosol small weakness in the setting of known bacteremia as well as osteomyelitis of the foot. Given the patient's medical comorbidities as well as bacteremia I cannot exclude a diagnosis of osteomyelitis involving the lumbar spine. I agree with the initiation of intravenous antibiotics. I would recommend that the patient undergo MRI of the lumbar spine with and without contrast to rule out an infectious process in the psoas musculature or the lumbar spine. I would recommended this be done ANDREWS i.e. either this evening or 1st thing in the morning. Fortunately, we do have an organism identified and the patient can be started on intravenous antibiotics. As the patient has full strength distally and only has moderate proximal left lower extremity strength, hopefully the patient's pain can be controlled with intravenous antibiotics and surgery will not need to be undertaken. If there is suggestion of an infectious process involving the spine, the patient would need to be fitted with a LSO brace for assistance with pain control. Consult date: 06/03/23 HPI: Charles Martin is a 67 year old male with past medical history significant for alcohol dependence, tobacco dependence, who presented to the emergency room on June 01, 2023 due to generalized weakness; per the record (patient is a poor historian) the patient had a fall and was unable to get back up on his on tried a several times but with no success eventually daughter called EMS who came to the house and brought him to the emergency room for evaluation patient has been complaining of lower back pain, left lower extremity pain and weakness During the hospitalization the patient has undergone a CT of the lumbar spine that shows spondylosis but no acute changes. He has been found to have osteomyelitis of the foot and has had GP cocci in 2/2 blood cultures twice. He has been started on antibiotics. He has not had MR imaging of the spine. To my evaluation he reports low back pain and severe left lower extremity pain, particularly with movement. He notes proximal left lower extremity weakness. [facility] Past Medical History Medical History (Updated 06/02/23 @ 07:18 by Erica Prado APRN) Healthy adult male Surgical History Surgical History No pertinent past surgical history Family History Family History (Updated 06/01/23 @ 23:23 by Awa Greer RN) Sibling Heart murmur Father Social History Social History Years smoked: 50 Smoking status: Former smoker Tobacco type: cigarettes Smoking end date: 05/09/23 Additional smoking assessment comments: 2-4 packs per week Alcohol intake: former Drinks per week: 5 Alcohol use details: daily Substance use: former Substance use type: marijuana Last use: 40 years ago Lack of Transportation: No Lack of Food: Never True Current Housing: I Have Housing Concerned About Future Housing: No Difficulty Paying Gas/Electric Bills: No Difficulty Paying for Meds: No Currently Unemployed: No Education: Trade/Vocational Certificate Difficulty w/ Childcare or Family Care: No Living arrangements: alone Occupation/Education: retired Gender identity (if verbalized by the patient): Male Spiritual care concerns: No Agree to blood products: Yes Meds Home Medications and Allergies Home Medications Medication Instructions Record
[2023-06-03 17:54] LABS: Glucose Point of Care 184 mg/dl (65-105)
[2023-06-03 17:59] LABS: Toxigenic C. Diff NEGATIVE (NEGATIVE)
[2023-06-03 20:00] VITALS: PULSE 108; RESP 18; O2SAT 100
[2023-06-03] MEDS: CYCLOBENZAPRINE HCL 10 MG TABLET PO (20:50)
[2023-06-03 21:11] LABS: Glucose Point of Care 203 mg/dl (65-105)
[2023-06-03 21:17] VITALS: BP 120/62; PULSE 109; RESP 20; TEMP 36.9; O2SAT 94
[2023-06-04] MEDS: HYDROmorphone HCL INJ (*CRX) 1 MG/ML SYR IV PUSH (00:43)
[2023-06-04 06:00] VITALS: BP 106/72; PULSE 108; RESP 18; TEMP 36.9; O2SAT 90
--- NOTE | 2023-06-04 06:58 | PM.IMPN ---
Progress Note: A&P Assessment and Plan (1) Osteomyelitis of toe of right foot: Code(s): M86.9 - Osteomyelitis, unspecified Status: Acute Assessment and Plan: -He also has a non-healing ulcer to his right second toe after trying to cut off a callus months ago. -XR of toe has concerns for osteomyelitis, confirmed with imaging. -consulted general surgery for source control -Blood cultures growing staph simulans. continue IV vanco and await sensitivities. -repeat blood cultures on Tuesday to document bacterial clearance. (2) Bacteremia: Code(s): R78.81 - Bacteremia Status: Acute Assessment and Plan: -Leukocytosis on admission of 23-->18-->19, remains elevated -Blood cultures growing staph simulans. continue IV vancomycin and await sensitivities. -repeat blood cultures on Tuesday to document bacterial clearance. -afebile -RODRIGO ordered for Tuesday (3) Diabetes mellitus, new onset: Code(s): E11.9 - Type 2 diabetes mellitus without complications Status: Acute Assessment and Plan: -Hemoglobin A1c 8 -Insulin sliding scale as needed. Increased corrective dose to moderate dosing scale. Blood glucose running in the 200's. -accu checks ac/hs -consumer educator consult for new onset DM diagnosis. Will need to add metformin 500 mg with evening meal at discharge. -patient is not interested in education related to the diagnosis at this time. Could be denial vs current pain limiting him from participating. (4) Lumbar radiculopathy: Code(s): M54.16 - Radiculopathy, lumbar region Status: Acute Assessment and Plan: -Admit to regular medical floor -Neurosurgery consult placed -Recommending MRI of lumbar spine w/wo contrast ANDREWS. Ordered by NS. Concerns for osteomyelitis. -Pain control with acetaminophen, tramadol, Dilaudid, and Flexeril -Pain may also be related to neuropathy-can start gabapentin (5) Generalized weakness: Code(s): R53.1 - Weakness Status: Acute Assessment and Plan: BLE weakness and shooting pain causing recurrent falls. related to #1 Repeated Falls PT/OT following but patient has not been able to work with them due to pain Plan -continue IV antibiotics for bacteremia and osteomyelitis -we consult recommendations from surgery -await MRI results -rodrigo on Tuesday -assess for improved pain control after adjustment to regimen. Subjective Date/time seen: 06/04/23 06:58 Interval history: HPI from chart This is a 67-year-old male with past medical history significant for alcohol dependence, tobacco dependence, patient presents to the emergency room due to generalized weakness, patient had a fall and was unable to get back up on his on tried a several times but with no success eventually daughter called EMS who came to the house and brought him to the emergency room for evaluation patient has been complaining of lower back pain, left lower extremity pain and weakness, knee pain of the left as well has had some diarrhea, denies any fevers rigors or chills, no nausea no vomiting, no abdominal pain, no cough, no sputum production, no loss of consciousness. Interval history 06/02: Patient is seen today in bed resting and appears comfortable. He says that he came to the hospital because of weakness and back pain. He says that he has also been having diarrhea for about a week and increased acid reflux. He also complains of left leg pain and is asking to have his leg wrapped with an VENECIA bandage. He denies fever, chills, headache, chest pain, shortness of breath, nausea, vomiting, constipation, abdominal pain, and flank pain. His U/A was + for nitrates and leukocytes but no WBC present and he is denies symptoms. He did have a leukocytosis on admission of 23 k/mm3 however he was just started on his second dose cristine of steroids for back pain. He had completed a 5 day course that was initially prescribed on 05/25 and then re-prescribed by another
[2023-06-04 08:16] LABS: Basophils Absolute Auto 0.1 K/mm3 (0.0-0.1); Basophils Percent Auto 0.3 % (0.2-1.2); Eosinophils Percent Auto 0.2 % (0-4.4); Hematocrit 33.4 % (42.0-52.0); Hemoglobin 11.1 g/dL (14.0-18.0); Immature Granulocyte Absolute 0.21 K/mm3 (0.00-0.031); Immature Granulocyte Percent A 1.2 % (0-0.5); Lymphocytes Absolute Auto 0.57 K/mm3 (0.9-3.2); Lymphocytes Percent Auto 3.1 % (18.3-44.2); Mean Corpuscular HGB Conc 33.2 g/dl (32-36); Mean Corpuscular Hemoglobin 31.7 pg (26-34); Mean Corpuscular Volume 95.4 fl (80-100); Monocytes Absolute Auto 1.3 K/mm3 (0.1-0.6); Neutrophils Absolute Auto 16.1 K/mm3 (1.3-6.7); Neutrophils Percent Auto 88.2 % (45.5-73.1); Platelet Count Result 246 k/mm3 (150-375); Red Cell Distribution Width 13.6 % (11.5-14.5); White Blood Count 18.2 K/mm3 (4.5-10.0)
[2023-06-04 08:26] LABS: Glucose Point of Care 170 mg/dl (65-105)
[2023-06-04 08:27] LABS: Alanine Aminotransferase 72 U/L (6-50); Albumin Level 2.7 g/dL (3.5-5.1); Alkaline Phosphatase 90 U/L (38-126); Anion Gap 5 mmol/L (8-16); Aspartate Amino Transferase 90 U/L (17-59); Bilirubin,Total 2.1 mg/dL (0.2-1.3); Blood Urea Nitrogen 14 mg/dL (9-20); Calcium 8.5 mg/dL (8.4-10.2); Carbon Dioxide 26 mmol/L (22-30); Chloride 92 mmol/L (98-107); Estimated CRCL calculation 92 ml/min; Estimated Glomerular Filt Rate > 60; Glucose 168 mg/dL (65-110); Magnesium 1.6 mg/dL (1.6-2.3); Phosphorus 4.1 mg/dL (2.5-4.5); Potassium 3.9 mmol/L (3.4-5.0); Sodium 123 mmol/L (137-145)
--- NOTE | 2023-06-04 08:29 | PM.CNGS ---
Assessment and Plan Assessment and plan (1) Osteomyelitis of toe of right foot: Code(s): M86.9 - Osteomyelitis, unspecified Status: Acute Assessment and Plan: cont abx for now, cultures all pending, d/w pt possibility of amputation given osteo and he would like time to process the situation, local wound care (2) Diabetes mellitus, new onset: Code(s): E11.9 - Type 2 diabetes mellitus without complications Status: Acute Assessment and Plan: newly dx'd, will need tight control (3) Lumbar radiculopathy: Code(s): M54.16 - Radiculopathy, lumbar region Status: Acute Assessment and Plan: workup and treatment per neurosurgery, MRI pending (4) Alcohol dependence: Code(s): F10.20 - Alcohol dependence, uncomplicated Status: Acute Assessment and Plan: withdraw precautions (5) UTI (urinary tract infection): Code(s): N39.0 - Urinary tract infection, site not specified Status: Acute Assessment and Plan: abx per primary team, await cultures History of Present Illness Consult details Consult date: 06/04/23 Reason for consult: wound care Requesting physician: Mirela Lopez MD Narrative: The patient is a 67-year-old male with multiple medical issues, including newly diagnosed diabetes, alcohol abuse, tobacco abuse presenting to the emergency department complaining of weakness s/p fall . The patient has had recurrent falls secondary to weakness and severe lower back pain with radiculopathy. The patient is currently being worked up by neuro surgery and MRI has been obtained. General surgery is now consulted given a right 2nd toe ulcer. The patient reports that approximately 3 months ago he had a large callus on that toe. He used something to sharply removed the callus and reports that he went to deep. The patient reports that he has had a nonhealing wound since that time. The patient reports some mild purulent drainage, however he has had no pain associated with it. The patient denies any fevers or chills. Review of Systems Review of Systems: All systems reviewed & are unremarkable except as noted in HPI and below PMFSH Past Medical History Medical History Healthy adult male Surgical History Surgical History No pertinent past surgical history Family History Family History Sibling Heart murmur Father Social History Social History Years smoked: 50 Smoking status: Former smoker Tobacco type: cigarettes Smoking end date: 05/09/23 Additional smoking assessment comments: 2-4 packs per week Alcohol intake: former Drinks per week: 5 Alcohol use details: daily Substance use: former Substance use type: marijuana Last use: 40 years ago Lack of Transportation: No Lack of Food: Never True Current Housing: I Have Housing Concerned About Future Housing: No Difficulty Paying Gas/Electric Bills: No Difficulty Paying for Meds: No Currently Unemployed: No Education: Trade/Vocational Certificate Difficulty w/ Childcare or Family Care: No Living arrangements: alone Occupation/Education: retired Gender identity (if verbalized by the patient): Male Spiritual care concerns: No Agree to blood products: Yes Meds Home Medications and Allergies Home Medications Medication Instructions Recorded Confirmed Type cyclobenzaprine 10 mg tablet 10 mg PO TID PRN muscle spasm #30 05/31/23 06/02/23 Rx tabs methylprednisolone 4 mg tablets in See Rx Instructions PO PER PKG DIR 05/31/23 06/02/23 Rx a dose pack (Medrol (Richar)) #21 ea tramadol 50 mg tablet 50 mg PO Q8H PRN pain #20 tabs 05/31/23 06/02/23 Rx Allergies Allergy/AdvReac Type Severity Reaction Status Da
[2023-06-04] MEDS: PANTOPRAZOLE 40 MG TABLET PO (08:52)
[2023-06-04] MEDS: SILVERGEL (ELTA) 45 ML 1 APPLIC TOPICAL (08:52)
[2023-06-04] MEDS: GABAPENTIN 300 MG CAPSULE PO ×3 (08:52→17:36)
--- NOTE | 2023-06-04 09:14 | PCPTNOTE ---
Waiting for test results/brace needs to be clarified prior to mobilizing pt. Will Follow.
[2023-06-04 09:19] LABS: Vancomycin Trough 12.4 ug/mL (10.0-20.0)
[2023-06-04] MEDS: ENOXAPARIN 40 MG/0.4 ML SYRINGE SUB-Q (10:09)
[2023-06-04 12:11] LABS: Glucose Point of Care 254 mg/dl (65-105)
[2023-06-04] MEDS: INSULIN ASPART (*BKC) 100 UNITS/ML SUB-Q (12:39)
[2023-06-04 14:00] VITALS: BP 133/77; PULSE 103; RESP 18; TEMP 35.9; O2SAT 96
[2023-06-04 17:25] LABS: Glucose Point of Care 190 mg/dl (65-105)
[2023-06-04] MEDS: oxyCODONE HCL (*CRX) 5 MG TAB IR 10 MG PO ×2 (17:38→21:13)
[2023-06-04 19:34] VITALS: BP 114/76; PULSE 104; RESP 18; TEMP 37.8; O2SAT 91
[2023-06-04 22:09] LABS: Glucose Point of Care 185 mg/dl (65-105)
[2023-06-05] MEDS: oxyCODONE HCL (*CRX) 5 MG TAB IR 10 MG PO ×2 (03:56→10:54)
[2023-06-05 05:55] VITALS: BP 100/65; PULSE 109; RESP 18; TEMP 36.2; O2SAT 90
--- NOTE | 2023-06-05 06:57 | PM.IMPN ---
Progress Note: A&P Assessment and Plan (1) Osteomyelitis of toe of right foot: Code(s): M86.9 - Osteomyelitis, unspecified Status: Acute Assessment and Plan: -XR of toe has concerns for osteomyelitis, confirmed with imaging. -consulted general surgery for source control related to infected toe. General surgery saw patient yesterday. Patient said he needed to process information regarding surgery before he agrees -Blood cultures growing staph simulans sensitive to vancomycin -MRI lumbar spine with concerns for in infection at L1-2 as well as infection and presence of fluid at L3-4, L4-5. Neurosurgery is on board. Anticipate patient needing surgery as his pain is worsening and his leukocytosis remains elevated despite appropriate antibiotic coverage. -LSO brace ordered per their recommendations for pain control . -Increased pain regimen yesterday. Receiving oxycodone 5-10 mg prn Q 4 hours with Dilaudid 2 mg prn for breakthrough pain. -Bowel regimen with miralax and gilbert-colace (2) Bacteremia: Code(s): R78.81 - Bacteremia Status: Acute Assessment and Plan: -Leukocytosis on admission of 23-->18-->19, remains elevated -Blood cultures growing staph simulans, sensitive to vancomycin -Starting to look septic on his vitals. Ordered a lactic. Starting IVF at 100 ml. -TRACE ordered for Tuesday (3) Diabetes mellitus, new onset: Code(s): E11.9 - Type 2 diabetes mellitus without complications Status: Acute Assessment and Plan: -Hemoglobin A1c 8 -Insulin sliding scale as needed. Increased corrective dose to moderate dosing scale. Blood glucose running in the 200's now with better control 150-180s. Could start low dose lantus at bedtime. -accu checks ac/hs -conservation educator consult for new onset DM diagnosis. Will need to add metformin 500 mg with evening meal at discharge. -patient is not interested in education related to the diagnosis at this time. Could be denial vs current pain limiting him from participating. (4) Generalized weakness: Code(s): R53.1 - Weakness Status: Acute Assessment and Plan: BLE weakness and shooting pain causing recurrent falls. related to #1 Repeated Falls PT/OT following but patient has not been able to work with them due to pain Plan -continue IV antibiotics for bacteremia and osteomyelitis -looking septic. lactic ordered. start IVF. -Neurosurgery notified of MRI results; anticipate needing surgery to clear fluid collections. -General surgery following Subjective Date/time seen: 06/05/23 06:57 Interval history: HPI from chart This is a 67-year-old male with past medical history significant for alcohol dependence, tobacco dependence, patient presents to the emergency room due to generalized weakness, patient had a fall and was unable to get back up on his on tried a several times but with no success eventually daughter called EMS who came to the house and brought him to the emergency room for evaluation patient has been complaining of lower back pain, left lower extremity pain and weakness, knee pain of the left as well has had some diarrhea, denies any fevers rigors or chills, no nausea no vomiting, no abdominal pain, no cough, no sputum production, no loss of consciousness. Interval history 06/02: Patient is seen today in bed resting and appears comfortable. He says that he came to the hospital because of weakness and back pain. He says that he has also been having diarrhea for about a week and increased acid reflux. He also complains of left leg pain and is asking to have his leg wrapped with an VENECIA bandage. He denies fever, chills, headache, chest pain, shortness of breath, nausea, vomiting, constipation, abdominal pain, and flank pain. His U/A was + for nitrates and leukocytes but no WBC present and he is denies symptoms. He did have a leukocytosis on admission of 23 k/mm3 however he was just started on his second dose cristine of ronen
--- NOTE | 2023-06-05 07:58 | PM.PNGS ---
Progress Note: A&P Assessment and Plan (1) Osteomyelitis of toe of right foot: Code(s): M86.9 - Osteomyelitis, unspecified Status: Acute Assessment and Plan: cont local wound care, abx for now, await neurosurgical plans (2) Bacteremia: Code(s): R78.81 - Bacteremia Status: Acute Assessment and Plan: cont abx (3) Lumbar radiculopathy: Code(s): M54.16 - Radiculopathy, lumbar region Status: Acute Assessment and Plan: await neurosurgical input s/p MRI Subjective Subjective Date/Time Seen: 06/05/23 07:58 Interval history: still c/o low back pain radiating to LLE, no pain in R foot Review of Systems Review of Systems: All systems reviewed & are unremarkable except as noted in HPI and below Exam Const: General: cooperative, no acute distress and ill appearing Resp: Auscultation: clear to auscultation bilaterally Cardio: Rate: regular rate Rhythm: regular rhythm GI: Inspection: normal to inspection Skin: Other: open wound distal R second toe c mod purulent drainage, bone probed at base Objective Data Vital Signs Vital Signs: Vital Signs - 24 hr 06/04/23 08:42 06/04/23 14:00 06/04/23 19:34 Temperature 35.9 C L 37.8 C H Pulse Rate 103 H 104 H Respiratory Rate 18 18 Blood Pressure 133/77 114/76 Pulse Oximetry 96 91 Oxygen Delivery Room Air 06/05/23 05:55 Temperature 36.2 C L Pulse Rate 109 H Respiratory Rate 18 Blood Pressure 100/65 Pulse Oximetry 90 Oxygen Delivery Intake/Output Intake/Output: Intake & Output 06/02/23 06/03/23 06/04/23 06/05/23 23:59 23:59 23:59 23:59 Intake Total 7064 1810 2280 Output Total 689 189 7268 50 Balance 2164 985 880 -50 Meds/Results Medications: Active Medications Generic Name Dose Route Start Last Admin Trade Name Freq PRN Reason Stop Dose Admin Acetaminophen 1,000 mg 06/02/23 00:12 Acetaminophen 500 Mg Tablet PO Q6H PRN Fever Al Hydrox/Mg Hydrox/Simethicone 30 ml 06/02/23 00:07 06/02/23 12:26 Mag Hydrox/Al Hydrox/Simeth 30 Ml Udc PO 30 ml Q6H PRN Administration Indigestion Cyclobenzaprine HCl 10 mg 06/02/23 00:06 06/03/23 20:50 Cyclobenzaprine Hcl 10 Mg Tablet PO 10 mg TID PRN Administration muscle spasm Dextrose 12.5 gm 06/02/23 07:15 Dextrose 50% 25 Gm/50 Ml Syringe IV PUSH PRN PRN Hypoglycemia Protocol Enoxaparin Sodium 40 mg 06/02/23 09:00 06/04/23 10:09 Enoxaparin 40 Mg/0.4 Ml Syringe SUB-Q 40 mg DAILY JEFF Administration Gabapentin 300 mg 06/02/23 17:00 06/04/23 17:36 Gabapentin 300 Mg Capsule PO 300 mg TID JEFF Administration Glucagon 1 mg 06/02/23 07:15 Glucagon For Inj 1 Mg Vial IM PRN PRN Hypoglycemia Protocol Glucose 15 gm 06/02/23 07:15 Glucose Oral Gel 15 Gm Of Glucse In 37.5 Gm Tube PO PRN PRN Hypoglycemia Protocol Hydromorphone HCl 2 mg 06/04/23 10:36 Hydromorphone Hcl Inj (*Crx) 1 Mg/Ml Syr IV PUSH Q3H PRN Pain Rated 7-10 Dextrose 1,000 mls @ 100 mls/hr 06/02/23 07:15 Dextrose 5% 1,000 Ml IVPB PRN PRN Hypoglycemia Protocol Vancomycin HCl 2,000 mg in 500 mls @ 250 mls/hr 06/04/23 10:00 06/04/23 23:14 Vancomycin 2,000 Mg/D5w 500 Ml IVPB Infused Q12H JEFF Infusion Sodium Chloride 1,000 mls @ 100 mls/hr 06/05/23 07:10 Normal Saline Iv IV CONT .Q10H JEFF Cefepime HCl 2 gm in 50 mls @ 100 mls/hr 06/05/23 07:55 Maxipime 2 Gm/Ns 50 Ml IVPB Q8H JEFF Metronidazole 500 mg in 100 mls @ 100 mls/hr 06/05/23 07:55 Flagyl 500 Mg/Iso Soln 100 Ml IVPB Q8H JEFF Insulin Aspart 1 - 3 units 06/04/23 21:00 06/04/23 21:51 Insulin Aspart (*Bkc) 100 Units/Ml SUB-Q Not Given HS [facility] Protocol Insulin Aspart 3 - 6 units 06/04/23 08:00 06/04/23 17:35 Insulin Aspart (*Bkc) 100 Units/Ml SUB-Q Not Given TIDWM JEFF Protocol Oxycodone
[2023-06-05 08:37] LABS: Glucose Point of Care 180 mg/dl (65-105)
[2023-06-05 08:37] LABS: Basophils Absolute Auto 0.1 K/mm3 (0.0-0.1); Basophils Percent Auto 0.4 % (0.2-1.2); Eosinophils Absolute Auto 0.1 K/mm3 (0-0.3); Eosinophils Percent Auto 0.4 % (0-4.4); Hemoglobin 11.4 g/dL (14.0-18.0); Immature Granulocyte Absolute 0.16 K/mm3 (0.00-0.031); Immature Granulocyte Percent A 0.9 % (0-0.5); Lymphocytes Absolute Auto 0.72 K/mm3 (0.9-3.2); Lymphocytes Percent Auto 3.8 % (18.3-44.2); Mean Corpuscular HGB Conc 33.5 g/dl (32-36); Mean Corpuscular Hemoglobin 31.5 pg (26-34); Mean Corpuscular Volume 93.9 fl (80-100); Mean Platelet Volume 10.2 fl (7.4-10.4); Monocytes Absolute Auto 1.2 K/mm3 (0.1-0.6); Monocytes Percent Auto 6.6 % (2.6-8.5); Neutrophils Absolute Auto 16.5 K/mm3 (1.3-6.7); Neutrophils Percent Auto 87.9 % (45.5-73.1); Platelet Count Result 281 k/mm3 (150-375); Red Blood Count 3.62 M/mm3 (4.6-6.20); Red Cell Distribution Width 13.3 % (11.5-14.5); White Blood Count 18.8 K/mm3 (4.5-10.0)
[2023-06-05 08:52] LABS: Lactic Acid Reflex 1.2 mmol/L (0.7-2.0)
[2023-06-05 08:55] LABS: Alanine Aminotransferase 100 U/L (6-50); Albumin Level 2.8 g/dL (3.5-5.1); Alkaline Phosphatase 89 U/L (38-126); Anion Gap 6 mmol/L (8-16); Aspartate Amino Transferase 124 U/L (17-59); Bilirubin,Total 2.2 mg/dL (0.2-1.3); Blood Urea Nitrogen 17 mg/dL (9-20); Calcium 8.8 mg/dL (8.4-10.2); Carbon Dioxide 25 mmol/L (22-30); Chloride 91 mmol/L (98-107); Estimated CRCL calculation 82 ml/min; Estimated Glomerular Filt Rate > 60; Glucose 178 mg/dL (65-110); Potassium 4.1 mmol/L (3.4-5.0); Sodium 122 mmol/L (137-145)
--- NOTE | 2023-06-05 09:11 | PCPTNOTE ---
Pt not medically appropriate to participate in skilled therapy at this time. Hospitalist aware and OK DC of orders.
--- NOTE | 2023-06-05 09:56 | WPDNEUROSGPN ---
Progress Note: A&P Assessment and Plan (1) Lumbar spondylosis: Code(s): M47.816 - Spondylosis without myelopathy or radiculopathy, lumbar region Status: Acute Subjective Date/time seen: 06/05/23 09:56 Interval history: Asked to review preston's MRI of the lumbar spine. There are changes of enhancement in the facet complex and at L1-2 in the anterolateral spine that could be degenerative versus infectious in nature Given patient's clinical history of osteomyelitis as well as bacteremia (and complaints of back and lower extremity pain), would manage patient as though changes seen on imaging are infectious in nature. There is, importantly, no evidence for epidural abscess or phlegmon causing structural neural compression. No evidence for psoas abscess There is a left paracentral disc bulge that contributes to moderate left lateral recess stenosis but I would not expect this alone to cause the patient's pain No structural abnormality to warrant surgical intervention at this time. Given severity of pain I would recommend imaging other anatomic regions (pelvis / hip?) to rule out other explanations for preston's proximal LLE pain. Agree with treatment with IV antibiotics. Will defer to medicine / ID as to whether to broaden coverage. Patient could be fitted for LSO brace for pain control (I will contact [facility] [place] for brace). He will require outpatient follow up with infectious disease and should have ESR and CRP to establish baseline for these inflammatory markers. Given lack of ID support on inpatient / oupatient side would consider transfer to OSH where patient can receive this care and establish with providers for follow up. Objective Data Vital Signs Vital Signs: Vital Signs - 24 hr 06/04/23 14:00 06/04/23 19:34 06/05/23 05:55 Temperature 96.6 F L 100.0 F H 97.2 F L Pulse Rate 103 H 104 H 109 H Respiratory Rate 18 18 18 Blood Pressure 133/77 114/76 100/65 Pulse Oximetry 96 91 90 Intake/Output Intake/Output: Intake & Output 06/02/23 06/03/23 06/04/23 06/05/23 23:59 23:59 23:59 23:59 Intake Total 6434 1810 2280 Output Total 333 550 9271 50 Balance 2164 985 880 -50 Meds/Results Medications: Active Medications Generic Name Dose Route Start Last Admin Trade Name Freq PRN Reason Stop Dose Admin Acetaminophen 1,000 mg 06/02/23 00:12 Acetaminophen 500 Mg Tablet PO Q6H PRN Fever Al Hydrox/Mg Hydrox/Simethicone 30 ml 06/02/23 00:07 06/02/23 12:26 Mag Hydrox/Al Hydrox/Simeth 30 Ml Udc PO 30 ml Q6H PRN Administration Indigestion Cyclobenzaprine HCl 10 mg 06/02/23 00:06 06/03/23 20:50 Cyclobenzaprine Hcl 10 Mg Tablet PO 10 mg TID PRN Administration muscle spasm Dextrose 12.5 gm 06/02/23 07:15 Dextrose 50% 25 Gm/50 Ml Syringe IV PUSH PRN PRN Hypoglycemia Protocol Enoxaparin Sodium 40 mg 06/02/23 09:00 06/04/23 10:09 Enoxaparin 40 Mg/0.4 Ml Syringe SUB-Q 40 mg DAILY JEFF Administration Gabapentin 300 mg 06/02/23 17:00 06/04/23 17:36 Gabapentin 300 Mg Capsule PO 300 mg TID JEFF Administration Glucagon 1 mg 06/02/23 07:15 Glucagon For Inj 1 Mg Vial IM PRN PRN Hypoglycemia Protocol Glucose 15 gm 06/02/23 07:15 Glucose Oral Gel 15 Gm Of Glucse In 37.5 Gm Tube PO PRN PRN Hypoglycemia Protocol Hydromorphone HCl 2 mg 06/04/23 10:36 Hydromorphone Hcl Inj (*Crx) 1 Mg/Ml Syr IV PUSH Q3H PRN Pain Rated 7-10 Dextrose 1,000 mls @ 100 mls/hr 06/02/23 07:15 Dextrose 5% 1,000 Ml IVPB PRN PRN Hypoglycemia Protocol Vancomycin HCl 2,000 mg in 500 mls @ 250 mls/hr 06/04/23 10:00 06/04/23 23:14 Vancomycin 2,000 Mg/D5w 500 Ml IVPB Infused Q12H JEFF Infusion Sodium Chloride 1,000 mls @ 100 mls/hr 06/05/23 07:10 Normal Saline Iv IV CONT .Q10H JEFF Cefepime HCl 2 gm in 50 mls @ 100 mls/hr 06/05/23 08:00 Maxipime 2 Gm/N
[2023-06-05] MEDS: GABAPENTIN 300 MG CAPSULE PO ×2 (10:53→15:28)
[2023-06-05] MEDS: PANTOPRAZOLE 40 MG TABLET PO (10:54)
[2023-06-05] MEDS: CEFEPIME 2 GM/NS 50 ML 2 GM/50 ML BAG IVPB (10:55)
[2023-06-05] MEDS: SODIUM CHLORIDE 0.9% IV 1,000 ML 100 ML IV CONT (10:55)
[2023-06-05] MEDS: ENOXAPARIN 40 MG/0.4 ML SYRINGE SUB-Q (10:55)
[2023-06-05] MEDS: SILVERGEL (ELTA) 45 ML 1 APPLIC TOPICAL (10:56)
[2023-06-05 11:43] LABS: Vancomycin Trough 19.5 ug/mL (10.0-20.0)
[2023-06-05 11:59] LABS: Glucose Point of Care 194 mg/dl (65-105)
--- NOTE | 2023-06-05 12:23 | PC.NURSE ---
Addendum entered by Nicole Watson RN 06/05/23 14:52: Return call from Gojimo, Commercial Baking Teacher states she will not be able to come to [place] today. She will call tomorrow to see if the patient is still at [facility] or [facility] to see where he is and whether they will want him to have the brace delivered there. Original Note: Gojimo, Neurology Braces provider, Sathish Quan called. Message left requesting LSO brace, notified that patient discharge is imminent, request call back as soon as possible to discuss patient need and options if patient is transferred to [facility] before brace is delivered. Spoke with Porsha.
--- NOTE | 2023-06-05 13:07 | PM.TDS ---
Transfer Discharge Sum: Prov Provider Date of admission: 06/03/23 10:39 Primary care physician: Su Conley MD Admitting clinician: Mirela Lopez MD Consults: 06/02/23 Consult to Physician Routine Comment: Spoke to office 06.02.23 @ 1500 Consulting Provider: Sohail Banuelos call circuit worker/MD group to consult: neurosurgery Reason for consultation: radiculopathy with recurrent falls Has provider been notified: Yes Wound/ET Consult Routine Reason for Consult:: Right 2nd toe, unknown ulcer vs dried bloody callous 06/03/23 15:02 Consult to Physician Routine Comment: called office and exchange on 06/03 @ 15:50 KAD Consulting Provider: Caroline Ashraf call circuit worker/MD group to consult: general surgery Reason for consultation: osteomylitis right second toe Has provider been notified: Yes DS: Admitting Diagnosis Discharge Date TuesdayJune 05 Admitting Diagnosis acute low back pain with right-sided sciatica DS: Discharge Diagnosis Discharge Diagnosis (1) Osteomyelitis of toe of right foot: Code(s): M86.9 - Osteomyelitis, unspecified Status: Acute Assessment and Plan: -XR of toe has concerns for osteomyelitis, confirmed with imaging. -consulted general surgery for source control related to infected toe. General surgery saw patient yesterday. Patient said he needed to process information regarding surgery before he agrees -Blood cultures growing staph simulans sensitive to vancomycin -MRI lumbar spine with concerns for in infection at L1-2 as well as infection and presence of fluid at L3-4, L4-5. Neurosurgery is on board. Anticipate patient needing surgery as his pain is worsening and his leukocytosis remains elevated despite appropriate antibiotic coverage. -LSO brace ordered per their recommendations for pain control . -Increased pain regimen yesterday. Receiving oxycodone 5-10 mg prn Q 4 hours with Dilaudid 2 mg prn for breakthrough pain. -Bowel regimen with miralax and gilbert-colace (2) Bacteremia: Code(s): R78.81 - Bacteremia Status: Acute Assessment and Plan: -Leukocytosis on admission of -->18-->19, remains elevated -Blood cultures growing staph simulans, sensitive to vancomycin -Starting to look septic on his vitals. Ordered a lactic. Starting IVF at 100 ml. -TRACE ordered for Tuesday (3) Diabetes mellitus, new onset: Code(s): E11.9 - Type 2 diabetes mellitus without complications Status: Acute Assessment and Plan: -Hemoglobin A1c 8 -Insulin sliding scale as needed. Increased corrective dose to moderate dosing scale. Blood glucose running in the 200's now with better control 150-180s. Could start low dose lantus at bedtime. -accu checks ac/hs -beck operator consult for new onset DM diagnosis. Will need to add metformin 500 mg with evening meal at discharge. -patient is not interested in education related to the diagnosis at this time. Could be denial vs current pain limiting him from participating. (4) Generalized weakness: Code(s): R53.1 - Weakness Status: Acute Assessment and Plan: BLE weakness and shooting pain causing recurrent falls. related to #1 Repeated Falls PT/OT following but patient has not been able to work with them due to pain Plan -continue IV antibiotics for bacteremia and osteomyelitis -looking septic. lactic ordered. start IVF. -Neurosurgery notified of MRI results; anticipate needing surgery to clear fluid collections. -General surgery following Transfer Discharge Sum: Med Medications Active and Home Medications: Home Medications cyclobenzaprine 10 mg tablet 10 mg PO TID PRN muscle spasm #30 tabs 05/31/23 [Rx Confirmed 06/02/23] methylprednisolone 4 mg tablets in a dose pack (Medrol (Richar)) See Rx Instructions PO PER PKG DIR #21 ea 05/31/23 [Rx Confirmed 06/02/23] tramadol 50 mg tablet 50 mg PO Q8H PRN pain #20 tabs 05/31/23 [Rx Confirmed 06/02/23] Active Medications
[2023-06-05 14:00] VITALS: BP 110/77; PULSE 102; RESP 18; TEMP 36; O2SAT 95
[2023-06-05] MEDS: metroNIDAZOLE 500 MG/ISO 100ML 500 MG/100 ML BAG 100 MG IVPB (15:28)
[2023-06-05 16:35] LABS: Glucose Point of Care 193 mg/dl (65-105)
== END 2023-06-05 17:20 | disposition short-term general hospital (02) | DRG 638 ==
LOC: ANHED 18:13 → ANH2MED 21:55
PROVIDERS: Admitting Provider Internal Medicine; Emergency Provider Physician Assistant; PCP Family Medicine; Visit Provider Nurse Practitioner Acute Care
DX: E11.69 Type 2 diabetes mellitus with other specified complication (principal); M86.171 Other acute osteomyelitis, right ankle and foot; R78.81 Bacteremia; B95.7 Other staphylococcus as the cause of diseases classified elsewhere; E11.621 Type 2 diabetes mellitus with foot ulcer; L97.519 Non-pressure chronic ulcer of other part of right foot with unspecified severity; F10.20 Alcohol dependence, uncomplicated; M51.36 Other intervertebral disc degeneration, lumbar region; M47.26 Other spondylosis with radiculopathy, lumbar region; R29.6 Repeated falls; Z87.891 Personal history of nicotine dependence
CPT/HCPCS: 36415; 70450; 71045; 72131; 72158; 72197; 73564; 73620; 73720; 74178; 80048; 80053; 80202; 81001; 82550; 82948; 83036; 83605; 83735; 84100; 85025; 86140; 87040; 87045; 87086; 87147; 87181; 87186; 87427; 87449; 87493; 93971; 96361; 96365; 96366; 96367; 96372; 96375; 96376; 99285; A9270; A9577; G0378; J0692; J0696; J1170; J1650; J1815; J1836; J1885; J3370; J7030; J7040; Q9967

== ENCOUNTER 2023-09-12 08:08 | Outpatient (CLI) | payer MEDICARE, SELFPAY ==
[2023-09-12 19:32] LABS: Basophils Absolute Auto 0.1 K/mm3 (0.0-0.1); Eosinophils Absolute Auto 0.1 K/mm3 (0-0.3); Eosinophils Percent Auto 1.8 % (0-4.4); Hematocrit 42.8 % (42.0-52.0); Hemoglobin 13.1 g/dL (14.0-18.0); Immature Granulocyte Absolute 0.02 K/mm3 (0.00-0.031); Immature Granulocyte Percent A 0.3 % (0-0.5); Lymphocytes Percent Auto 14.8 % (18.3-44.2); Mean Corpuscular HGB Conc 30.6 g/dl (32-36); Mean Corpuscular Hemoglobin 28.4 pg (26-34); Mean Corpuscular Volume 92.8 fl (80-100); Mean Platelet Volume 11.3 fl (7.4-10.4); Monocytes Absolute Auto 0.5 K/mm3 (0.1-0.6); Monocytes Percent Auto 7.5 % (2.6-8.5); Neutrophils Percent Auto 74.6 % (45.5-73.1); Platelet Count Result 233 k/mm3 (150-375); Red Blood Count 4.61 M/mm3 (4.6-6.20); Red Cell Distribution Width 15.3 % (11.5-14.5); White Blood Count 6.8 K/mm3 (4.5-10.0)
[2023-09-12 20:07] LABS: Vitamin D 25 Hydroxy 27.7 ng/mL
[2023-09-12 20:35] LABS: Creatinine Urine 169.9 mg/dL
[2023-09-12 20:43] LABS: MALB Creatinine Ratio 24.2 mg/g (0-30); Microalbumin Urine Random 41.2 mg/L (0-16.7)
[2023-09-12 20:55] LABS: Alanine Aminotransferase 59 U/L (6-50); Alkaline Phosphatase 86 U/L (38-126); Anion Gap 5 mmol/L (8-16); Aspartate Amino Transferase 56 U/L (17-59); Bilirubin,Total 0.7 mg/dL (0.2-1.3); Blood Urea Nitrogen 11 mg/dL (9-20); Calcium 9.7 mg/dL (8.4-10.2); Carbon Dioxide 33 mmol/L (22-30); Chloride 100 mmol/L (98-107); Cholesterol 242 mg/dL (0-200); Estimated Glomerular Filt Rate > 60; Glucose 132 mg/dL (65-110); HDL Direct 40 mg/dL; Potassium 3.9 mmol/L (3.4-5.0); Sodium 138 mmol/L (137-145); Triglycerides 140 mg/dL (<150)
[2023-09-12 21:05] LABS: LDL Cholesterol Direct 130 mg/dL
[2023-09-12 21:24] LABS: Prostate Specific Antigen 0.7 ng/mL (< OR = 4.0)
[2023-09-12 22:38] LABS: Hemoglobin A1C 6.1 % (<5.7)
== END 2023-09-12 08:09 | disposition home or self-care (01) ==
LOC: ANHGOSHLAB 08:10
PROVIDERS: PCP Family Medicine; Visit Provider Family Medicine
DX: E78.5 Hyperlipidemia, unspecified (principal); E53.8 Deficiency of other specified B group vitamins; E11.9 Type 2 diabetes mellitus without complications; I10 Essential (primary) hypertension; Z13.29 Encounter for screening for other suspected endocrine disorder; Z12.5 Encounter for screening for malignant neoplasm of prostate; E55.9 Vitamin D deficiency, unspecified
CPT/HCPCS: 36415; 80053; 80061; 82043; 82306; 82607; 83036; 84153; 84443; 85025; G0103

== ENCOUNTER 2024-07-04 11:22 | Outpatient (CLI) | payer MEDICARE, SELFPAY ==
[2024-07-04 16:22] LABS: Creatinine Urine 144.4 mg/dL
[2024-07-04 16:25] LABS: Microalbumin Urine Random 121.3 mg/L (0-16.7)
[2024-07-04 17:59] LABS: Alanine Aminotransferase 21 U/L (6-50); Albumin Level 4.4 g/dL (3.5-5.1); Alkaline Phosphatase 68 U/L (38-126); Anion Gap 10 mmol/L (4-12); Aspartate Amino Transferase 50 U/L (17-59); Bilirubin,Total 0.8 mg/dL (0.2-1.3); Blood Urea Nitrogen 17 mg/dL (9-20); Calcium 9.6 mg/dL (8.4-10.2); Carbon Dioxide 31 mmol/L (22-30); Chloride 98 mmol/L (98-107); Estimated Glomerular Filt Rate > 60; Glucose 115 mg/dL (65-110); Potassium 4.4 mmol/L (3.4-5.0); Sodium 139 mmol/L (137-145)
[2024-07-04 18:43] LABS: Hemoglobin A1C 6.1 % (<5.7)
== END 2024-07-04 11:23 | disposition home or self-care (01) ==
LOC: ANHGOSHLAB 11:23
PROVIDERS: PCP Family Medicine; Visit Provider Family Medicine
DX: I10 Essential (primary) hypertension (principal); E55.9 Vitamin D deficiency, unspecified; E11.9 Type 2 diabetes mellitus without complications
CPT/HCPCS: 36415; 80053; 82043; 82306; 83036

== ENCOUNTER 2025-01-24 08:22 | Outpatient (CLI) | payer MEDICARE, SELFPAY ==
[2025-01-24 14:36] LABS: Alanine Aminotransferase 29 U/L (6-50); Albumin Level 4.7 g/dL (3.5-5.1); Alkaline Phosphatase 49 U/L (38-126); Anion Gap 10 mmol/L (4-12); Aspartate Amino Transferase 39 U/L (17-59); Bilirubin,Total 0.8 mg/dL (0.2-1.3); Blood Urea Nitrogen 22 mg/dL (9-20); Calcium 10.1 mg/dL (8.4-10.2); Carbon Dioxide 29 mmol/L (22-30); Chloride 102 mmol/L (98-107); Cholesterol 215 mg/dL (0-200); Estimated Glomerular Filt Rate > 60; Glucose 101 mg/dL (65-110); HDL Direct 64 mg/dL; Sodium 141 mmol/L (137-145); Triglycerides 78 mg/dL (<150)
[2025-01-24 14:40] LABS: Basophils Absolute Auto 0.1 K/mm3 (0.0-0.1); Basophils Percent Auto 1.2 % (0.2-1.2); Eosinophils Absolute Auto 0.2 K/mm3 (0-0.3); Eosinophils Percent Auto 2.8 % (0-4.4); Hemoglobin 15.2 g/dL (14.0-18.0); Immature Granulocyte Absolute 0.02 K/mm3 (0.00-0.031); Immature Granulocyte Percent A 0.3 % (0-0.5); Lymphocytes Absolute Auto 1.01 K/mm3 (0.9-3.2); Lymphocytes Percent Auto 13.3 % (18.3-44.2); Mean Corpuscular Hemoglobin 34.2 pg (26-34); Mean Corpuscular Volume 103.4 fl (80-100); Mean Platelet Volume 10.9 fl (7.4-10.4); Monocytes Absolute Auto 0.7 K/mm3 (0.1-0.6); Monocytes Percent Auto 8.7 % (2.6-8.5); Neutrophils Absolute Auto 5.6 K/mm3 (1.3-6.7); Neutrophils Percent Auto 73.7 % (45.5-73.1); Platelet Count Result 170 k/mm3 (150-375); Red Blood Count 4.45 M/mm3 (4.6-6.20); Red Cell Distribution Width 12.3 % (11.5-14.5); White Blood Count 7.6 K/mm3 (4.5-10.0)
[2025-01-24 14:48] LABS: LDL Cholesterol Direct 111 mg/dL
[2025-01-24 15:08] LABS: Prostate Specific Antigen 0.9 ng/mL (< OR = 4.0)
[2025-01-24 16:32] LABS: Creatinine Urine 139.6 mg/dL
[2025-01-24 16:39] LABS: MALB Creatinine Ratio 51.1 mg/g (0-30); Microalbumin Urine Random 71.4 mg/L (0-16.7)
[2025-01-24 16:49] LABS: Hemoglobin A1C 5.4 % (<5.7)
[2025-01-24 18:28] LABS: Vitamin D 25 Hydroxy 47.6 ng/mL
== END 2025-01-24 08:23 | disposition home or self-care (01) ==
LOC: ANHGOSHLAB 08:23
PROVIDERS: PCP Family Medicine; Visit Provider Family Medicine
DX: E78.5 Hyperlipidemia, unspecified (principal); E11.40 Type 2 diabetes mellitus with diabetic neuropathy, unspecified; I10 Essential (primary) hypertension; E55.9 Vitamin D deficiency, unspecified; E53.8 Deficiency of other specified B group vitamins; Z12.5 Encounter for screening for malignant neoplasm of prostate
CPT/HCPCS: 36415; 80053; 80061; 82043; 82306; 82607; 83036; 84153; 84443; 85025; G0103

== ENCOUNTER 2025-09-24 09:09 | Outpatient (CLI) | payer MEDICARE, SELFPAY ==
[2025-09-24 13:19] LABS: Alanine Aminotransferase 31 U/L (6-50); Albumin Level 4.6 g/dL (3.5-5.1); Alkaline Phosphatase 54 U/L (38-126); Anion Gap 11 mmol/L (4-12); Aspartate Amino Transferase 47 U/L (17-59); Bilirubin,Total 0.6 mg/dL (0.2-1.3); Blood Urea Nitrogen 18 mg/dL (9-20); Calcium 9.3 mg/dL (8.4-10.2); Carbon Dioxide 29 mmol/L (22-30); Chloride 101 mmol/L (98-107); Cholesterol 164 mg/dL (0-200); Estimated Glomerular Filt Rate 59; Glucose 126 mg/dL (65-110); HDL Direct 71 mg/dL; Potassium 4.4 mmol/L (3.4-5.0); Sodium 141 mmol/L (137-145); Total Protein 8.3 g/dL (6.3-8.2); Triglycerides 58 mg/dL (<150)
[2025-09-24 16:31] LABS: Hemoglobin A1C 5.9 % (<5.7)
== END 2025-09-24 09:10 | disposition home or self-care (01) ==
LOC: ANHGOSHLAB 09:10
PROVIDERS: PCP Family Medicine; Visit Provider Family Medicine
DX: E78.5 Hyperlipidemia, unspecified (principal); I10 Essential (primary) hypertension; E11.9 Type 2 diabetes mellitus without complications
CPT/HCPCS: 36415; 80053; 80061; 83036